=== PATIENT | male | born 1985 | race Caucasian/White ===

== ENCOUNTER 2017-10-17 05:31 | Day surgery (SDC) | payer BC ==
[~2017-10-17] VITALS: Ht 182.9 cm; Wt 169.8 kg
[2017-10-17] VITALS (9 sets, daily range): BP systolic 105–139; BP diastolic 45–67; PULSE 65–85; TEMP 97.1–98.1
[~2017-10-17 05:31] MED LIST: NO HOME MEDICATIONS; NORCO 325 MG-51 TAB PO
[2017-10-17] MEDS ORDERED: ULTRAM 50MG TAB50 MG PO (06:41)
[2017-10-17] MEDS ORDERED: NORCO 325 MG-7.1 TAB PO (06:52)
[2017-10-17] MEDS ORDERED: ROXICODONE 55 MG/TAB PO (10:18)
== END 2017-10-17 13:05 | disposition home or self-care (01) ==
LOC: SDCO 05:31
DX: M19.011 Primary osteoarthritis, right shoulder (principal); M17.11 Unilateral primary osteoarthritis, right knee; Z88.0 Allergy status to penicillin; Z68.42 Body mass index [BMI] 45.0-49.9, adult
CPT/HCPCS: J0330; J1100; J1170; J1885; J2250; J2405; J2704; J2795; J3010; J7120

== ENCOUNTER 2024-06-20 09:01 | Emergency (ER) | payer BC ==
[~2024-06-20] VITALS: Ht 188 cm; Wt 181.8 kg
[~2024-06-20 09:01] MED LIST changes: +NORCO 325 MG-7.1 TAB PO; +ROXICODONE 55 MG/TAB PO; +ULTRAM 50MG TAB50 MG PO
[2024-06-20 09:58] VITALS: BP 109/71; PULSE 65; TEMP 97.8
== END 2024-06-20 10:05 | disposition short-term general hospital (02) ==
LOC: COL.ER 09:01
DX: N50.812 Left testicular pain (principal)